=== PATIENT | male | born 1945 | race Caucasian/White ===

== ENCOUNTER 2021-05-19 09:45 | Day surgery (SDC) | payer OTHER ==
[~2021-05-19] VITALS: Ht 177.8 cm; Wt 109.6 kg
[~2021-05-19 09:45] MED LIST: Aspir 8181 MG PO; CENTRUM SILVER1 EAC4 PO
[2021-05-19] MEDS ORDERED: TAMS.4ER (10:02)
--- NOTE | 2021-05-19 11:32 | NUR ---
05/19/21 1132 Lynda Camejo NORMAL SALINE INJECTED: CECAL POLYPECTOMY - 3ML NS PROXIMAL TRANSVERSE COLON POLYPECTOMY - 5ML NS
== END 2021-05-19 12:00 | disposition home or self-care (01) ==
LOC: ORSCSDS 09:45
PROVIDERS: Internal Medicine Gastroenterology
PROC: 0DBH8ZX Excision of Cecum, Via Natural or Artificial Opening Endoscopic, Diagnostic (ICD-10-PCS; principal; 2021-05-19 11:00)
PROC: 0DBL8ZX Excision of Transverse Colon, Via Natural or Artificial Opening Endoscopic, Diagnostic (ICD-10-PCS; principal; 2021-05-19 11:00)
PROC: 3E0H8KZ Introduction of Other Diagnostic Substance into Lower GI, Via Natural or Artificial Opening Endoscopic (ICD-10-PCS; principal; 2021-05-19 11:00)
DX: R15.9 Full incontinence of feces (principal); D12.0 Benign neoplasm of cecum; D12.3 Benign neoplasm of transverse colon; K62.1 Rectal polyp; K57.30 Diverticulosis of large intestine without perforation or abscess without bleeding; K64.4 Residual hemorrhoidal skin tags; E11.22 Type 2 diabetes mellitus with diabetic chronic kidney disease; I12.9 Hypertensive chronic kidney disease with stage 1 through stage 4 chronic kidney disease, or unspecified chronic kidney disease; N18.9 Chronic kidney disease, unspecified; Z86.010 Personal history of colon polyps; Z79.82 Long term (current) use of aspirin; Z79.899 Other long term (current) drug therapy
CPT/HCPCS: 88305; J2704; J7120

== ENCOUNTER 2021-07-30 20:50 | Inpatient (IN) | payer OTHER ==
[~2021-07-30] VITALS: Ht 177.8 cm; Wt 108.8 kg
[~2021-07-30 20:50] MED LIST changes: +CENTRUM SILVER1 EAC2 PO; -CENTRUM SILVER1 EAC4 PO; +TAMS.4ER PO
[2021-07-30 21:32] LABS: BASOPHILS ABSOLUTE AUTO 0.05 K/mm3 (0.00-0.23); BASOPHILS PERCENT AUTO 0 % (0-2); EOSINOPHILS PERCENT AUTO 0 % (0-6); Hematocrit 43.8 % (37.0-53.0); Hemoglobin 14.8 g/dL (13.5-17.5); IMMATURE GRAN ABSOLUTE AUTO 0.07 K/mm3 (0.00-0.10); IMMATURE GRAN PERCENT AUTO 1 % (0-1); LYMPHOCYTES ABSOLUTE AUTO 0.31 K/mm3 (0.84-5.20); LYMPHOCYTES PERCENT AUTO 2 % (21-46); MONOCYTES ABSOLUTE AUTO 0.63 K/mm3 (0.16-1.47); MONOCYTES PERCENT AUTO 4 % (4-13); Mean Corpuscular HGB 30.1 pg (26.0-34.0); Mean Corpuscular HGB Conc 33.8 g/dL (31.5-36.5); Mean Corpuscular Volume 89 fL (80-100); Mean Platelet Volume 9.2 fL (9.1-12.4); NEUTROPHILS ABSOLUTE AUTO 13.13 K/mm3 (1.96-9.15); NEUTROPHILS PERCENT AUTO 93 % (41-73); Platelet Count 203 K/mm3 (150-400); RDW Coefficient Variation 12.5 % (11.7-14.2); RDW Standard Deviation 41.2 fL (35.1-46.3); Red Blood Cell Count 4.92 M/mm3 (4.30-5.90); White Blood Cell Count 14.19 K/mm3 (4.00-11.30)
[2021-07-30 21:53] LABS: Alanine Aminotransfer (ALT/SGP 24 U/L (12-78); Albumin, Blood 3.2 g/dL (3.4-5.0); Albumin/Globulin Ratio 0.7 (0.8-1.8); Alk Phos 99 U/L (50-136); Anion Gap 11 mmol/L (6-16); Aspartate Aminotrans (AST/SGOT 24 U/L (12-37); Bilirubin, Total 1.1 mg/dL (0.1-1.0); Blood Urea Nitrogen 26 mg/dL (8-24); Bun/Creatinine Ratio 12.6 (12.0-20.0); CO2, Blood 20 mmol/L (21-32); Calcium, Blood 9.5 mg/dL (8.5-10.1); Chloride, Blood 102 mmol/L (98-108); Creatinine, Blood 2.07 mg/dL (0.60-1.20); Globulin, Blood 4.5 g/dL (2.2-4.0); Glomerular Filtration Rate 31 (60-); Glucose, Blood 125 mg/dL (70-99); Potassium, Blood 4.1 mmol/L (3.5-5.5); Sodium, Blood 133 mmol/L (136-145); Total Protein, Blood 7.7 g/dL (6.4-8.2); Troponin I <0.015 ng/mL (0.000-0.040)
[2021-07-30] MEDS ORDERED: AZITHROMYCIN250 MG PO (22:30)
[2021-07-30] MEDS ORDERED: ASPI325 PO (22:31)
[2021-07-31] MEDS ORDERED: Stromectol3 MG PO (02:54)
--- NOTE | 2021-07-31 06:30 | NUR ---
SHIFT SUMMARY PT ER ADMIT THIS SHIFT, COVID POSITIVE. PT ON RA CURRENTLY AND MAINTAINING SATS IN THE 90'S. PT RECEIVED REGENERON AND STEROIDS IN THE ER AND REPORTS THAT HE IS FEELING MUCH BETTER. RESP E/U AT REST, DRY COUGH. LUNGS DIMINISHED BUT CLEAR. VITALS ARE STABLE. PT IS INDEPENDENT IN THE ROOM, A/OX4. ADMISSION COMPLETE. BED IN LOWEST POSITION, CALL LIGHT WITHIN REACH.
[2021-07-31] MEDS ORDERED: DEXA6 PO (14:27)
--- NOTE | 2021-07-31 17:14 | NUR ---
DISCHARGE NOTE PATIENT WAS DISCHARGED HOME THIS SHIFT AT 1630. PATIENT VERBALIZED UNDERSTANDING OF DISCHARGE INSTRUCTIONS AND PRESCRIPTIONS GIVEN. PATIENT RECEIVED EDUCATION FROM [place] ON HOME OXYGEN BEFORE BEING DISCHARGED TO THE DAUGHTER THIS SHIFT. PATIENT'S VITAL SIGNS STABLE, AND BELONGINGS WITH THEM WELL.
[2021-08-01] MEDS ORDERED: Aspir 8181 MG PO (12:10)
== END 2021-07-31 16:53 | disposition home or self-care (01) | DRG 177 ==
LOC: ER 20:50 → MEDS 07-31 00:56
PROVIDERS: Physician Assistant; ADMIT Internal Medicine
PROC: 8E0ZXY6 Isolation (ICD-10-PCS; principal; 2021-07-31)
PROC: 3E0333Z Introduction of Anti-inflammatory into Peripheral Vein, Percutaneous Approach (ICD-10-PCS; 2021-07-31)
DX: U07.1 COVID-19 (principal); J96.01 Acute respiratory failure with hypoxia; J12.82 Pneumonia due to coronavirus disease 2019; E87.1 Hypo-osmolality and hyponatremia; N18.30 Chronic kidney disease, stage 3 unspecified; Z28.03 Immunization not carried out because of immune compromised state of patient; Z79.82 Long term (current) use of aspirin; Z79.899 Other long term (current) drug therapy; Z90.5 Acquired absence of kidney; Z87.891 Personal history of nicotine dependence
CPT/HCPCS: 36415; 71045; 71260; 80053; 82947; 84484; 85025; 93005; 93010; 94644; 94761; 96374; 99285-25; A9270; J1100; J1650; M0243; Q0243; Q9967

== ENCOUNTER 2022-01-31 15:42 | Emergency (ER) | payer OTHER ==
[~2022-01-31] VITALS: Ht 180.3 cm; Wt 106.6 kg
[~2022-01-31 15:42] MED LIST changes: +ASPI325 PO; +AZITHROMYCIN250 MG PO; +DEXA6 PO; +Stromectol3 MG PO
== END 2022-01-31 18:16 | disposition home or self-care (01) ==
LOC: ER 15:42
DX: R04.0 Epistaxis (principal); Z79.899 Other long term (current) drug therapy
CPT/HCPCS: A9270

== ENCOUNTER 2024-06-02 08:59 | Day surgery (SDC) | payer OTHER ==
[~2024-06-02] VITALS: Ht 177.8 cm; Wt 106.4 kg
[2024-06-02] MEDS ORDERED: Lactated Ringer's 1,000 ML IV ONE ×2 (09:50→10:10)
[2024-06-02] MEDS ORDERED: propofoL 50 ML IV ONE (10:09)
[2024-06-02] MEDS ORDERED: Lidocaine HCl/Pf 1% 5 ML VIAL ONE (10:10)
[2024-06-02 11:10] VITALS: BP 140/86
== END 2024-06-02 11:15 | disposition home or self-care (01) ==
LOC: ORSCSDS 08:59
PROVIDERS: Internal Medicine Gastroenterology
PROC: 0DJD8ZZ Inspection of Lower Intestinal Tract, Via Natural or Artificial Opening Endoscopic (ICD-10-PCS; principal; 2024-06-02 10:15)
DX: Z12.11 Encounter for screening for malignant neoplasm of colon (principal); K57.30 Diverticulosis of large intestine without perforation or abscess without bleeding; Z86.010 Personal history of colon polyps; I10 Essential (primary) hypertension
CPT/HCPCS: 82947; J2001; J2704; J7120

== ENCOUNTER 2025-09-21 07:03 | Inpatient (IN) | payer OTHER ==
[~2025-09-21] VITALS: Ht 177.8 cm; Wt 109.8 kg
[2025-09-21] VITALS (12 sets, daily range): BP systolic 111–162; BP diastolic 59–76
[~2025-09-21 07:03] MED LIST changes: +ASPIR 8181 M1 PO; +ATOR10 PO; +Isosorbide Mono30 MG PO; +Lopressor 25 mg25 MG PO; +NITR.4SL SL
[2025-09-21] MEDS ORDERED: Heparin Sodium 1000 Units/ML 10ML MDV ONE (07:31)
[2025-09-21] MEDS ORDERED: NS 1,000 ML IV ONE ×2 (07:31→07:33)
[2025-09-21] MEDS ORDERED: Verapamil HCL 2.5 MG/ML 2ML Injection ONE (07:31)
[2025-09-21] MEDS ORDERED: Nitroglycerin 2 MG/20 ML BTL ONE (07:31)
[2025-09-21] MEDS ORDERED: NS 250 ML IV ONE (07:31)
[2025-09-21] MEDS ORDERED: FentaNYL Citrate 50 MCG/ML 2 ML Injection ONE (08:11)
[2025-09-21] MEDS ORDERED: Midazolam HCl 1MG / ML 2ML Vial ONE (08:12)
[2025-09-21] MEDS ORDERED: RANO500T PO (09:30)
--- NOTE | 2025-09-21 10:37 | NUR ---
BEGAN DEFLATING TR BAND. 2 CC AIR REMOVED. NO BLEEDING OR HEMATOMA NOTED.
--- NOTE | 2025-09-21 11:03 | NUR ---
DR SHARPE IN TO UPDATE PT AND FAMILY OF PLAN OF ADMISSION AND TRANSFER FOR [facility].
--- NOTE | 2025-09-21 11:15 | NUR ---
TR BAND FULLY DEFLATED. NO BLEEDING OR HEMATOMA.
--- NOTE | 2025-09-21 11:34 | NUR ---
REPORT GIVEN TO PCU NURSE. PT R RADIAL TR BAND IN PLACE. NO BLEEDING OR HEMATOMA NOTED. VSS. IBAN. DENIES CP. PT TO PCU RM 19 FOR CONTINUATION OF CARE. PT PENDING TRANSFER/ AWAITING ASSIGMENT.
[2025-09-21] MEDS ORDERED: FLU VACC TS2025(65UP)/MF59C/PF 45 MCG/0.5 ML SYRINGE IM SCH (12:00)
--- NOTE | 2025-09-21 18:43 | NUR ---
ASSUMPTION OF CARE/ SHIFT SUMMARY THIS RN ASSUMED CARE OF PT AT ABOUT 1300 FROM [facility]. PT IS A&O X4, COOPERATIVE WITH CARE, AND ABLE TO EXPRESS NEEDS. SBA FOR TRANSFER IN ROOM. PT MAINTAINS SATS > 95% ON RA, DENIES SOB. ON TELE, PT IS SB 50s WITH STABLE BPs, NO COMPLAINTS OF CHEST PAIN/PRESSURE. TR BAND WAS FULLY DEFLATED BUT STILL IN PLACE AT TIME OF ASSUMPTION. BAND IS NOW FULLY OFF AND SITE IS FREE OF ANY BLEEDING OR HEMATOMA. ARMBOARD STILL IN PLACE. PT HAS ORDER TO [facility] TO [facility] FOR CARDIAC PROCEDURE. EXPECTED TO TRANSFER OUT TOMORROW. FAMILY HAS BEEN AT BEDSIDE AND UPDATED ON CARE. SEE NOTES FOR UPDATES. REPORT GIVEN TO NOC RN.
[2025-09-21] MEDS ORDERED: NS 1,000 ML IV SCH (20:00)
[2025-09-21] MEDS ORDERED: Heparin Sodium,Porcine 5,000 UNIT/0.5 ML SDV SC SCH (21:00)
[2025-09-22 00:18] VITALS: BP 120/63
[2025-09-22 04:23] VITALS: BP 124/70
[2025-09-22 04:52] LABS: Anion Gap 8.0 mmol/L (3-11); Blood Urea Nitrogen 24.0 mg/dL (8-24); CO2, Blood 23.0 mmol/L (21-32); Calcium, Blood 8.9 mg/dL (8.5-10.1); Chloride, Blood 113.0 mmol/L (98-108); Creatinine, Blood 1.67 mg/dL (0.60-1.20); Glucose, Blood 89.0 mg/dL (70-99); Potassium, Blood 4.3 mmol/L (3.5-5.5); Sodium, Blood 140.0 mmol/L (136-145)
--- NOTE | 2025-09-22 05:15 | NUR ---
SHIFT SUMMARY THIS RN ASSUMED CARE OF PATIENT AT 1900. A&O X4. PT DENIED CHEST PAIN/PRESSURE AND SOB T/O THIS SHIFT. SB/SR ON MONITOR WITH HR 50-60S. ON RA WITH SPO2 >92%. AFEBRILE. BP STABLE. RT RADIAL SITE DRESSING C/D/I. NO S/S OF BLEEDING, SWELLING, DISCOLORATION, OR HEMATOMA. ARMBOARD IN PLACE. X1 BAG OF NS INFUSING PER EMAR. INDEPENDENT TO BATHROOM AND USING URINAL. AWAITING TO HEAR THAT [facility]ED AVAILABLE SO PATIENT CAN [facility] TRANSFER. BED IN LOWEST POSITION AND CALL LIGHT WITHIN REACH. THIS RN WILL REPORT TO ONCOMING DAYSHIFT RN.
[2025-09-22 07:37] VITALS: BP 142/74
[2025-09-22] MEDS ORDERED: Multivitamins/Minerals 1 Tab PO SCH (09:00)
--- NOTE | 2025-09-22 11:03 | NUR ---
Pt. is awake and sitting in a chair when he welcomes my visit. Pts. Daughter and Pts. friend are at bedside. Pt. is known to this salesperson handbags from the community so rapport is re-established quickly. Facilitate a life update and listen with interest and empathy. Pt. displays a pleasant demeanor and verbalizes his extectation to being transferred to [place] for an advanced cardiac procedure. Normalize the Pt. experience. Matters of family, nadeem and belief are considered. Pt. displays evidence of trust and confidence. Prayed with the Pt. and those present. Pt. verbalized gratitude for the spiritual care visit.
[2025-09-22 12:31] VITALS: BP 123/70
[2025-09-22 13:15] VITALS: BP 125/59
--- NOTE | 2025-09-22 17:26 | NUR ---
COB[facility] TRANSFER TO [facility] IN [place] AFTERNOON. REPORT GIVEN TO TRANSPORT CREW AND CALLED TO [facility]. A/A/OX4 IN NO ACUTE DISTRESS AT TIME OF TRANSPORT. AMULATES TO [place], DENIES CP OR SOB. BELONGINGS SENT WITH CREW.
== END 2025-09-22 15:12 | disposition short-term general hospital (02) | DRG 287 ==
LOC: MHTC 07:03 → PCU 07:05 → MHTC 07:05 → PCU 11:23 → MHTC 09-22 08:00 → PCU 09-22 13:26
PROVIDERS: ADMIT Internal Medicine
PROC: B2111ZZ Fluoroscopy of Multiple Coronary Arteries using Low Osmolar Contrast (ICD-10-PCS; principal; 2025-09-21)
PROC: 4A023N7 Measurement of Cardiac Sampling and Pressure, Left Heart, Percutaneous Approach (ICD-10-PCS; 2025-09-21)
DX: I25.110 Atherosclerotic heart disease of native coronary artery with unstable angina pectoris (principal); I13.0 Hypertensive heart and chronic kidney disease with heart failure and stage 1 through stage 4 chronic kidney disease, or unspecified chronic kidney disease; I50.32 Chronic diastolic (congestive) heart failure; I25.82 Chronic total occlusion of coronary artery; E78.5 Hyperlipidemia, unspecified; N40.0 Benign prostatic hyperplasia without lower urinary tract symptoms; N18.30 Chronic kidney disease, stage 3 unspecified; Z85.528 Personal history of other malignant neoplasm of kidney; Z90.5 Acquired absence of kidney; Z92.3 Personal history of irradiation; Z88.8 Allergy status to other drugs, medicaments and biological substances; Z79.82 Long term (current) use of aspirin
CPT/HCPCS: 36415; 76937; 80048; 93458; 99152; 99153; A9270; C1769; C1887; C1894; J1644; J2250; J3010; J7030; J7050; Q9967